=== PATIENT | male | born 1965 | race American Indian/Alaskan Native ===

== ENCOUNTER 2016-09-09 13:51 | Outpatient (CLI) | payer OTHER ==
--- NOTE | 2016-09-09 15:09 | Cat Scan Report ---
CT scan of lumbar spine: History: Lumbar radiculopathy. Findings: Normal height of vertebral bodies with decrease in height of L1-L2 and L4-L5 interspace. Sclerotic articular surfaces with peripheral osteophytes suggestive of a degenerative changes. No fracture. No paravertebral mass. The disc spaces and the neural foramina are not optimally visualized due to motion artifacts. There is no bony spinal stenosis noted. Degenerative facet joints are noted at L3-L4, L4-L5 and L5-S1. Most pronounced at L5-S1. Impression: Limited study due to motion artifacts. Findings as detailed above.
== END 2016-09-09 13:52 | disposition home or self-care (01) ==
LOC: CT 13:51
PROVIDERS: ATTEND Internal Medicine
DX: M54.16 Radiculopathy, lumbar region (principal); M25.78 Osteophyte, vertebrae; M79.604 Pain in right leg; M25.552 Pain in left hip; M25.551 Pain in right hip; E11.40 Type 2 diabetes mellitus with diabetic neuropathy, unspecified; I10 Essential (primary) hypertension
CPT/HCPCS: 72131